=== PATIENT | female | born 1970 | race African-American/Black ===

== ENCOUNTER 2016-10-06 15:37 | Emergency (ER) ==
--- NOTE | 2016-10-06 17:28 | Diag Imaging Result Document ---
PROCEDURE NAME: TOE(S)-LEFT - 10/06/2016 LEFT GREAT TOE, 3 VIEWS: There are mild degenerative changes. There is a probable small, subchondral cyst at the lateral base of the proximal phalanx. There are no substantial erosive or destructive changes identified. There is no fracture or dislocation identified. IMPRESSION: Mild degenerative changes. No evidence of fracture or dislocation.
[2016-10-06] MEDS ORDERED: ZOFRAN ODT PO ONE (18:43)
[2016-10-06] MEDS ORDERED: NORCO-7.5 PO ONE (18:44)
--- NOTE | 2016-10-06 18:47 | PROVIDER DOCUMENTATION ---
HPI-General Adult - History of Present Illness -Gen Adult Nature of Presenting Problems: 46 YOF PRESENTS TO ED WITH C/O PT STATES SHE WOKE UP THIS MORNING WITH MODERATE PAIN TO LT GREAT TOE. PT DENIES HX OF GOUT AND STATES NO PREVIOUS SX. Location of Pain/Injury: reports: feet (LT GREAT TOE) Pain Radiation: reports: no radiation Quality of Pain: reports: aching Severity: reports: moderate Onset/Duration: reports: this morning Timing: reports: still present Context/Activities at Onset: reports: sleep Modifying Factors: improves with: nothing Associated Symptoms: reports: joint pain (LT GREAT TOE) Similar Symptoms Previously?: No Recently seen or treated by another doctor?: No <Jamal Chapa - Last Filed: 10/06/16 18:41> <Robbie Cristobal - Last Filed: 10/06/16 18:49> - General Chief Complaint: Extremity Pain Stated Complaint: TOE PAIN/DIABETIC Time Seen by Provider: 10/06/16 18:34 Allergies/Adverse Reactions: Patient Allergies Allergy/AdvReac Type Severity Reaction Status Date / Time codeine [Codeine] Allergy Severe ANAPHYLAXIS Verified 02/23/16 00:42 Penicillins Allergy Intermediate RASH Verified 02/23/16 00:42 Home Medications: Home Medication List Medication Instructions Recorded Confirmed Last Taken Type LISINOpril [Prinivil] 20 mg PO DAILY 10/26/13 10/06/16 10/06/16 History Ergocalciferol (Vitamin D2) 50,000 unit PO Q7D 10/06/16 10/06/16 Unknown History [Vitamin D] Indomethacin 50 mg PO BID #10 capsule 10/06/16 Unknown Rx Metformin HCl [Glucophage Xr] 1,000 mg PO BID 10/06/16 10/06/16 10/06/16 History Omeprazole [Prilosec] 40 mg PO DAILY 10/06/16 10/06/16 10/06/16 History PRAVAstatin [Pravachol] 40 mg .ROUTE HS 10/06/16 10/06/16 10/05/16 History Review of Systems - Adult - REVIEW OF SYSTEMS - ADULT Constitutional: denies: chills, fever Cardiovascular: denies: chest pain, palpitations, syncope Respiratory: denies: cough, shortness of breath, wheezing Gastrointestinal: denies: abdominal pain, diarrhea, nausea, vomiting Musculoskeletal: denies: back pain, neck pain Neurological: denies: dizziness/vertigo, headache/migraines, syncope <EduardJamal - Last Filed: 10/06/16 18:41> Past History - Adult - PAST MEDICAL HISTORY-ADULT Review of Records: reports: Nursing Assessment Review, Medications Reviewed Cardiovascular: reports: HTN Respiratory: reports: asthma, COPD Obstetrical/Gynecological: reports: denies history Genitourinary: reports: denies history Musculoskeletal: reports: chronic pain (back), intervertebral disc disease Neurological: reports: Seizures/Epilepsy (1 in 1986 while ) Endocrine/Immune: reports: Diabetes. denies: Sickle Cell disease (needs to be tested) Other Conditions: reports: MRSA (2010) - PRIOR SURGERIES/PROCEDURES Surgical/Procedure History: reports: appendectomy, hysterectomy, orthopedic ( extremity), back/neck (back surgery), other (exploratory lap, biopsy of the left breast) - PRIOR HOSPITALIZATIONS Prior Hospitalizations: reports: none - IMMUNIZATION STATUS Childhood Immunizations: UTD Flu Vaccine: UTD - FAMILY HISTORY Family History: reviewed, not pertinent - SOCIAL HISTORY Smoking: cigarettes, greater than 1 pack/day Provider spent 3-5 mins advising pt. on dangers of tobacco.: Discussed manners to quit use, and f/u contacts for add'l counseling. Substance Use: denies Alcohol Use Frequency: never Living Situation: family <Jamal Chapa - Last Filed: 10/06/16 18:41> Physical Exam-General - CONSTITUTIONAL General Appearance: alert, mild distress - EYES Eyes: PERRL/EOMI, pink conjunctivae - HEAD, EARS, NOSE, MOUTH & THROAT HENMT: normocephalic/atraumatic, moist mucous membranes - NECK Neck: non-tender, full range of motion, supple - RESPIRATORY Respiratory: chest non-tender, lungs clear, normal breath sounds - CARDIOVASCULAR Cardiovascular: normal peripheral pulses, regular rate, rhythm - GASTROINTESTINAL (ABDOMEN) Abdominal Exam: normal bowel sounds, non tender, soft - LYMPHATIC Lymphatic: no adenopathy - MUSCULOSKELETAL Back Exam: normal inspection, no CVA tenderness, no vertebral tenderness Extremity: normal range of motion (LT GREAT TOE), tenderness - SKIN Integumentary: normal color, normal turgor, warm/dry - NEUROLOGIC Neurologic: grossly normal - PSYCHIATRIC Psych/Mental Status: oriented x 3 <Jamal Chapa - Last Filed: 10/06/16 18:41> Progress - PLAN OF CARE/RESULTS Progress/Plan/Lab Results: Laboratory Tests 10/06/16 17:04 Uric Acid 4.8 Orders Category Date Time Status TOE(S)-LEFT [RAD] Stat Exams 10/06/16 15:50 Draft URIC ACID [CHEM] Stat Lab 10/06/16 17:04 Completed Hydrocodone/APAP 7.5 mg/325 mg [[place]-7.5] Med 10/06/16 18:44 Discontinued 1 each PO NOW ONE Ondansetron Odt [Zofran Odt] Med 10/06/16 18:43 Discontinued 4 mg PO NOW ONE Vital Signs Temp Pulse Resp BP Pulse Ox 10/06/16 15:51 97.6 F 84 18 134/80 99 codeine [Codeine] Allergy (Severe, Verified 02/23/16 00:42) ANAPHYLAXIS Penicillins Allergy (Intermediate, Verified 02/23/16 00:42) RASH LISINOpril [Prinivil] 20 mg PO DAILY 10/26/13 Ergocalciferol (Vitamin D2) [Vitamin D] 50,000 unit PO Q7D 10/06/16 Metformin HCl [Glucophage Xr] 1,000 mg PO BID 10/06/16 Omeprazole [Prilosec] 40 mg PO DAILY 10/06/16 PRAVAstatin [Pravachol] 40 mg .ROUTE HS 10/06/16 Laboratory 10/06/16 17:04 Uric Acid 4.8 - XRAY 1 XRAY: Left XRAY Study: Foot XRAY Interpretation: arthritic changes; otherwise nad <Robbie Cristobal - Last Filed: 10/06/16 18:49> Departure <Jamal Chapa - Last Filed: 10/06/16 18:41> - Departure Time of Disposition Order: 18:47 Certified Medical Emergency: Urgent <Robbie Cristobal - Last Filed: 10/06/16 18:49> - Departure DIAGNOSIS: Toe pain, left Disposition: HOME 01 Condition: Good Additional Instructions: Take medication as prescribed. Follow up with your primary care provider or orthopedist. Return to the ER for any new or worsening symptoms. ED Follow Up Instructions: You have been treated by a care provider in the Emergency Department. These instructions are being provided to you so you can have an understanding of how to care for yourself upon discharge. Upon discharge from the Emergency Department, you are responsible for making arrangements for follow-up care by a physician of your choice. Take all prescribed medications as directed. Return to the Emergency Department immediately for any new or worsening symptoms. You may call the Physician Referral phone number at [phone] to obtain a list of Physicians who are taking new patients. Prescriptions: Indomethacin 50 mg PO BID #10 capsule Referrals: Yg Ceja MD [STAFF PHYSICIAN] - Attestation - Scribe Verification/Attestation Scribe:: Jamal Chapa Acting as Scribe for:: Robbie Cristobal Scribe documention review:: This chart was documented by a scribe and accurately reflects the service the provider performed and the decisions made by the provider. <Jamal Chapa - Last Filed: 10/06/16 18:41> - Physician/ PETE Attestation Patient care was provided by Advanced Practice Provider:: Yes Advanced Practice Provider:: Robbie Cristobal Advanced Practice Provider documentation review:: The Mid-level provider documentation, treatment plan and medical decision making was reviewed by the physician who agrees with all treatment and medical decision making by the P. <Robbie Cristobal - Last Filed: 10/06/16 18:49> Physician Attestation
[2016-10-06 19:00] VITALS: BP 109/70
== END 2016-10-06 19:07 | disposition home or self-care (01) ==
LOC: P.ED 15:37
DX: M79.675 Pain in left toe(s) (principal); I10 Essential (primary) hypertension; J44.9 Chronic obstructive pulmonary disease, unspecified; G89.29 Other chronic pain; M54.9 Dorsalgia, unspecified; E11.9 Type 2 diabetes mellitus without complications; F17.210 Nicotine dependence, cigarettes, uncomplicated; Z79.899 Other long term (current) drug therapy; Z71.6 Tobacco abuse counseling; Z86.14 Personal history of Methicillin resistant Staphylococcus aureus infection
CPT/HCPCS: 73660; 84550; 99283

== ENCOUNTER 2018-11-24 15:53 | Inpatient (IN) ==
--- NOTE | 2018-11-24 16:48 | Diag Imaging Result Doc PS360 ---
EXAM: CHEST-2 VIEWS 11/24/2018 HISTORY: cough x 2 weeks copd smoker TECHNIQUE: PA and lateral chest COMMENT: There is no evidence of acute cardiac or pulmonary disease. Compared to the previous study of 10/10/2017 there has been no significant change. IMPRESSION: No acute disease. Electronically signed by Delon De Leon 11/24/2018 4:46 PM
[2018-11-24] MEDS ORDERED: SOLU-MEDROL IV ONE (17:59)
[2018-11-24] MEDS ORDERED: DUONEB (A & A) INH ONE (17:59)
--- NOTE | 2018-11-24 18:00 | PROVIDER DOCUMENTATION ---
HPI-Respiratory General - General Chief Complaint: Cough Stated Complaint: COUGH, CONGESTION Time Seen by Provider: 11/24/18 17:43 Allergies/Adverse Reactions: Patient Allergies Allergy/AdvReac Type Severity Reaction Status Date / Time codeine [Codeine] Allergy Severe ANAPHYLAXIS Verified 02/26/17 02:06 Penicillins Allergy Intermediate RASH Verified 02/26/17 02:06 Home Medications: Home Medication List Medication Instructions Recorded Confirmed Last Taken Type Cetirizine HCl [Zyrtec] 10 mg PO DAILY 11/24/18 11/24/18 Unknown History Losartan/Hydrochlorothiazide 20 mg PO BID 11/24/18 11/24/18 Unknown History [Losartan-Hctz 100-12.5 mg Tab] Metformin [Glucophage] 1,000 mg PO BID 11/24/18 11/24/18 Unknown History Ranitidine HCl [Zantac 25] 25 mg PO DAILY 11/24/18 11/24/18 Unknown History - History of Present Illness-Resp Nature of Presenting Problem: reports coughing wheezing for last 2 wks. history of asthma and copd. pcp gave cephalosporin medicine which she took but her symptom not improving. improvement with atrovent but afte rmedicine wears off she is back to her base line. pcp not offered steroid gven her DM per pt. +fever. still smoking but not as much. ++ear pain and sore throat. Review of Systems - Adult - REVIEW OF SYSTEMS - ADULT Constitutional: reports: no symptoms reported Eyes: reports: no symptoms reported Ears, Nose, Mouth & Throat: reports: no symptoms reported Cardiovascular: reports: no symptoms reported Respiratory: reports: no symptoms reported Gastrointestinal: reports: no symptoms reported Genitourinary: reports: no symptoms reported Musculoskeletal: reports: no symptoms reported Integumentary: reports: no symptoms reported Neurological: reports: no symptoms reported Psychiatric: reports: no symptoms reported Endocrine: reports: no symptoms reported Hematologic/Lymphatic: reports: no symptoms reported Allergic/Immunologic: reports: no symptoms reported All Other Systems: Reviewed and Negative Past History - Adult - PAST MEDICAL HISTORY-ADULT Review of Records: reports: Old Records Reviewed, Nursing Assessment Review, Medications Reviewed, Social history reviewed & non-contributory. Major Childhood Illnesses: reports: denies history Cardiovascular: reports: HTN Respiratory: reports: asthma, COPD Gastrointestinal: reports: denies history Obstetrical/Gynecological: reports: denies history Genitourinary: reports: denies history Musculoskeletal: reports: chronic pain (back), intervertebral disc disease Neurological: reports: Seizures/Epilepsy (1 in 1986 while ) Endocrine/Immune: reports: Diabetes. denies: Sickle Cell disease (needs to be tested) Other Conditions: reports: MRSA (2010) - PRIOR SURGERIES/PROCEDURES Surgical/Procedure History: reports: appendectomy, hysterectomy, orthopedic (extremity), back/neck (back surgery), other (exploratory lap, biopsy of the left breast) - PRIOR HOSPITALIZATIONS Prior Hospitalizations: reports: none - IMMUNIZATION STATUS Childhood Immunizations: UTD Flu Vaccine: UTD - FAMILY HISTORY Family History: reviewed, not pertinent - SOCIAL HISTORY Smoking: less than 1 pack/day Provider spent 3-5 mins advising pt. on dangers of tobacco.: Discussed manners to quit use, and f/u contacts for add'l counseling. Alcohol Use Frequency: never Living Situation: family Physical Exam-General - PHYSICAL EXAM-ADULT Initial Vital Signs Reviewed: Yes - CONSTITUTIONAL General Appearance: appears well, alert, no apparent distress - EYES Eyes: PERRL/EOMI - HEAD, EARS, NOSE, MOUTH & THROAT HENMT: normocephalic/atraumatic, pharyngeal erythema, TM abnormal (left) - NECK Neck: non-tender, full range of motion - RESPIRATORY Respiratory: chest non-tender, wheezing (b/l) - CARDIOVASCULAR Cardiovascular: normal peripheral pulses, regular rate, rhythm, no edema - GASTROINTESTINAL (ABDOMEN) Abdominal Exam: normal bowel sounds, non tender, soft - MUSCULOSKELETAL Back Exam: normal inspection, no CVA tenderness, no vertebral tenderness Extremity: normal range of motion, non-tender, normal gait Peripheral Pulses: radial (R): 2+, radial (L): 2+ - SKIN Integumentary: normal color, normal turgor, warm/dry - NEUROLOGIC Neurologic: grossly normal, no motor/sensory deficits - PSYCHIATRIC Psych/Mental Status: normal mood/affect, normal thought content, normal thought process, oriented x 3 Progress - PLAN OF CARE/RESULTS Progress/Plan/Lab Results: Vital Signs - 8 hr 11/24/18 16:03 11/24/18 18:14 11/24/18 19:11 Temperature 98 F 98.2 F Pulse Rate 81 78 89 Respiratory Rate 18 18 16 Blood Pressure 136/72 122/62 O2 Sat by Pulse Oximetry 99 96 100 Laboratory Results - last 24 hr 04/22/19 04/22/19 18:17 18:17 WBC 9.94 RBC 5.36 Hgb 13.5 Hct 40.7 MCV 75.9 L MCH 25.2 L MCHC 33.2 RDW Std Deviation 16.5 H Plt Count 318 MPV 8.9 Immature Gran % (Auto) 0.1 Neut % (Auto) 61.0 Lymph % (Auto) 32.4 [place] % (Auto) 4.3 Eos % (Auto) 1.8 Baso % (Auto) 0.4 Immature Gran # (Auto) 0.01 Neut # (Auto) 6.06 Lymph # (Auto) 3.22 [place] # (Auto) 0.43 Eos # (Auto) 0.18 Baso # (Auto) 0.04 Sodium 137 Potassium 3.9 Chloride 102 Carbon Dioxide 21 L Anion Gap 14 BUN 10 Creatinine 0.7 Estimated GFR/1.73 m2 > 60 BUN/Creatinine Ratio 14 Glucose 145 H Calculated Osmolality 275 Calcium 9.1 Total Bilirubin < 0.15 L AST 13 ALT 13 Alkaline Phosphatase 97 Total Protein 7.8 Albumin 4.3 Globulin 4.0 Albumin/Globulin Ratio 1.0 Orders Category Date Time Status CHEST-2 VIEWS [RAD] Stat Exams 11/24/18 16:08 Completed ABG [RESP] Routine Lab 11/24/18 19:39 Ordered CBC WITH ELECTRONIC DIFF [HEME] Stat Lab 11/24/18 18:17 Completed CMP [COMPREHENSIVE METABOLIC PANEL] [CHEM] Stat Lab 11/24/18 18:17 Completed Albuterol 2.5MG/Ipratrop 0.5MG [Duoneb (A & A)] Med 11/24/18 17:59 Discontinued 3 ml INH NOW ONE Methylprednisolone Sod Succ [Solu-Medrol] Med 11/24/18 17:59 Discontinued 125 mg IV NOW ONE Aerosol Treatments Routine Oth 11/24/18 17:59 Completed Aerosol Treatments Stat Oth 11/24/18 17:59 Completed [facility] [address] , [address], [place] [id number] Department of Imaging Patient: CAROLINE JONES ADM Date: 11/24/18 MR#: [id number] : 1970 ADM Status: PRE ER Age/Sex: 48/F Room/Bed: Loc: P.ED Ordering Physician: Dyana Pelaez MD Family Physician: Alessio Nicholas MD Reason for Procedure: cough x 2 weeks copd smoker Signed EXAM: CHEST-2 VIEWS 11/24/2018 HISTORY: cough x 2 weeks copd smoker TECHNIQUE: PA and lateral chest COMMENT: There is no evidence of acute cardiac or pulmonary disease. Compared to the previous study of 10/10/2017 there has been no significant change. IMPRESSION: No acute disease. Electronically signed by Delon De Leon 11/24/2018 4:46 PM 11/24/18 1646 Interpreting Physician: Delon De Leon MD Dictated Date/Time: 11/24/18 1645 cc: Dyana Pelaez MD; Alessio Nicholas MD Result Diagrams: 11/24/18 18:17 11/24/18 18:17 - CONSULTS/PCP/HOSPITALIST Notification #1 *Consult/PCP/Hospitalist*: dr Sun Time Discussed: 20:16 (s/p olesya, slight improvement. ) Consult Disposition: Admit Departure - Departure Date of Disposition Decision: 11/24/18 Time of Disposition Decision: 20:16 DIAGNOSIS: Tobacco use disorder, Asthma exacerbation in COPD Disposition: ADMITTED INPATIENT 09 Certified Medical Emergency: Emergent Condition: Stable Referrals and Follow-Ups: Alessio Nicholas MD [Primary Care Provider] - Call for Appoint. 1-2days - Critical Care Note This patient required my direct & personal management of CC.: No Attestation - Physician/ PETE Attestation The physician spent face to face time with patient:: Yes Advanced Practice Provider documentation review:: Supervising physician onsite and consulted in the evaluation and care of this patient. The physician did have a face to face encounter with the patient.
[2018-11-24 18:31] LABS: BASO# 0.04 X1000 (0.0-0.2); BASO% 0.4 % (0.0-0.8); EOS# 0.18 X1000 (0.0-0.7); EOS% 1.8 % (0.0-10.0); HEMATOCRIT 40.7 % (37.0-47.0); HEMOGLOBIN 13.5 g/dL (12.0-16.0); IMM GRAN# 0.01 X1000 (0.0-0.04); IMM GRAN% 0.1 % (0.0-0.5); LYMPH# 3.22 X1000 (1.2-3.4); LYMPH% 32.4 % (20.5-51.1); MCH 25.2 PG (27-31); MCHC 33.2 g/dL (33-37); MCV 75.9 FL (81-99); MONO# 0.43 X1000 (0.11-0.59); MONO% 4.3 % (1.7-9.3); MPV 8.9 FL (7.4-10.4); NEUT# 6.06 X1000 (1.4-6.5); PLT 318 X1000 (130-400); RBC 5.36 XMIL (4.2-5.4); RDW 16.5 % (11.5-14.5); WBC 9.94 X1000 (4.8-10.8)
[2018-11-24 19:29] LABS: AGAP 14; ALBUMIN 4.3 g/dL (3.5-5.0); ALKALINE PHOSPHATASE 97 U/L (32-104); BUN 10 mg/dL (8-22); CALCIUM 9.1 mg/dL (8.8-10.2); CHLORIDE 102 mmol/L (98-107); COSMO 275; CREATININE 0.7 mg/dL (0.5-0.9); ESTIMATED GFR > 60; GLUCOSE 145 mg/dL (70-104); GOT 13 U/L (10-30); GPT 13 U/L (10-36); POTASSIUM 3.9 mmol/L (3.5-5.1); SODIUM 137 mmol/L (136-145); TCO2 21 mmol/L (25-35); TOTAL BILIRUBIN < 0.15 mg/dL (0.20-1.00); TOTAL PROTEIN 7.8 g/dL (6.3-8.3)
[2018-11-24 20:45] LABS: BE -3.5 mmoll (-3.0-3.0); BLOOD TYPE ARTERIAL; HCO3-(ACT) 22.1 mmoll (20.0-26.0); METHB 0.9 % (0.0-1.5); O2(CT) 17.2 mL/dL (15.0-23.0); O2HB 92.6 % (95.0-99.0); PCO2(98.6) 32 mmHg (35-45); PO2(98.6) 72 mmHg (60-100); SAMPLE BLOOD; SAO2 96.9 % (95.0-100.0); THB 13.2 g/dL (11.5-17.4); pH(98.6) 7.41 (7.35-7.45)
[2018-11-24] MEDS: LEVAQUIN 750 MG/D5W 750 MG/150 ML IVPB IV SCH (20:45)
[2018-11-24 20:46] LABS: ALLEN TEST YES; MODALITY ROOM AIR
[2018-11-24] MEDS: DUONEB (A & A) INH SCH (23:31)
[2018-11-25] MEDS: DUONEB (A & A) INH SCH ×6 (03:19→23:11)
[2018-11-25] MEDS ORDERED: HYZAAR 50/12.5 MG PO SCH (13:30)
[2018-11-25] MEDS: COZAAR PO SCH (13:40)
[2018-11-25] MEDS: ZYRTEC PO SCH (13:41)
[2018-11-25] MEDS: HYDROCHLOROTHIAZIDE PO SCH (13:47)
[2018-11-25] MEDS: PULMICORT INH SCH ×2 (15:24→19:41)
[2018-11-25] MEDS: GLUCOPHAGE PO SCH ×2 (15:56→16:27)
[2018-11-25] MEDS: LEVAQUIN 750 MG/D5W 750 MG/150 ML IVPB IV SCH (21:40)
[2018-11-26] MEDS: DUONEB (A & A) INH SCH ×3 (03:18→11:22)
[2018-11-26] MEDS: COZAAR PO SCH (08:33)
[2018-11-26] MEDS: GLUCOPHAGE PO SCH (08:33)
[2018-11-26] MEDS: HYDROCHLOROTHIAZIDE PO SCH (08:33)
[2018-11-26] MEDS: ZYRTEC PO SCH (08:33)
[2018-11-26] MEDS ORDERED: PREDNISONE PO SCH (09:00)
[2018-11-26] MEDS: PULMICORT INH SCH (11:22)
[2018-11-26 11:45] VITALS: BP 117/49
--- NOTE | 2018-12-11 07:43 | HISTORY AND PHYSICAL ---
A 48-year-old black female presented to the ER complaining of a 2 week history of coughing, wheezing, background of asthma, COPD. Saw her PCP. Gave her cephalosporin medicine which she took but her symptoms not improving. Improves with [*]but after med wears off, she is back to her baseline. PCP offered her steroid, given her diabetic patient, fever, still smoking but not as much, plus ear and sore throat. Saw in the ER. Had a temp of 98 degrees, pulse of 81, respirations 18, BP 136/72, O2 sat 92. White count was 9,940 with hematocrit 40.7, platelet count 318,000. She had a relatively normal differential. Sodium was 137, potassium 3.9, chloride 102, CO2 21, BUN 10, creatinine 0.7. GFR greater than 60. BUN creatinine ratio of 14, 145 glucose, 9.1 calcium, less than 0.15 bilirubin, AST 13, ALT 13, alkaline phosphatase 97. Total protein 7.8, albumin 4.3, globulin 4. She had chest x-ray. No evidence of acute cardiac or pulmonary disease. No change from her previous film. Patient was admitted as an inpatient with asthma exacerbation, COPD, tobacco disorder. ALLERGIES: Codeine and penicillin. She takes Zyrtec, losartan HCTZ 300/12.5, metformin 1000 p.o. b.i.d., ranitidine 25 daily. REVIEW OF SYSTEMS: She has had no significant weight gain, weight loss or change. CONSTITUTIONAL: She otherwise feels fine. EYES: No change in visual acuity, irritation or illness or field cuts. EARS, NOSE AND THROAT: No sinusitis, otitis or pharyngitis. CARDIOVASCULAR: No chest pain, palpitations, PND, edema, orthopnea, claudication. RESPIRATORY: No cough chronically. No shortness of breath. No wheeze. GASTROINTESTINAL: No nausea, vomiting, diarrhea, constipation, bloody stools, black stools, tarry stools. GENITOURINARY: No dysuria, polyuria, hematuria, vaginal discharge. MUSCULOSKELETAL: No joint aches, muscle aches. NEUROLOGICAL: No focal deficits. No seizure. No TIA, stroke. ENDOCRINE: No polyuria, polydipsia, polyphagia. No cold or heat intolerance. HEMATOLOGICAL: No bleeding, clotting disorders. ALLERGIC: No asthma. No hayfever. She has a background history of hypertension, asthma, COPD. She has some chronic back pain with intervertebral disk disease. She has a remote history of a seizure when she was back in 1986. She says that she has had some borderline diabetes. She has tested positive for MRSA, staph in 2000. She is status post an appendectomy, hysterectomy, orthopedic, extremities, back, neck surgeries and exploratory laparotomy, biopsy of the left breast. She smokes less than a pack of cigarettes a day. PHYSICAL EXAMINATION: GENERAL APPEARANCE: She looks well, alert and in no apparent distress. HEENT: Pupils were PERRL, EOMs intact. SC clear. Fundi benign. Nares patent. Oropharynx negative. NECK: Supple. Bounding carotids without thyromegaly, lymphadenopathy. Midline trachea. CHEST: Nontender. Wheezing bilaterally. CARDIOVASCULAR: She had normal peripheral pulses, regular rate and rhythm with no edema. GASTROINTESTINAL: Soft. No bowel sounds. Nontender. MUSCULOSKELETAL: No CVA tenderness. No vertebral tenderness. EXTREMITIES: Normal range of motion, nontender, normal gait. Pulses are okay. SKIN: Clear, warm and dry. No lesions. No rashes. NEUROLOGICAL: No focal neurological deficits. PSYCHIATRIC: She is oriented x3. Temperature is 98 degrees, pulse is 81, respiratory rate 18, blood pressure 136/72, O2 99. She was admitted with asthma exacerbation. She was placed on neb treatments, Albuterol, ipratropium, methylprednisolone 125 mL. Continued on her steroids. She is admitted for observation. cc: Alessio Nicholas MD
== END 2018-11-26 14:27 | disposition home or self-care (01) | DRG 203 ==
LOC: P.ED 15:53 → P.MEDSURG 20:34
PROVIDERS: ADMIT Internal Medicine; ATTEND Internal Medicine
CPT/HCPCS: 71020; 71046; 80053; 82805; 82948; 85025; 94640; 94761; 96374; 99285; A9270; J1956; J2930; J7506; J7512; XXXXX